=== PATIENT | female | born 1960 | race Caucasian/White ===

== ENCOUNTER 2018-09-20 10:28 | Emergency (ER) | payer OTHER ==
[2018-09-20] MEDS ORDERED: ONDANSETRON 4 MG/2 ML VIAL ONE (10:54)
[2018-09-20] MEDS ORDERED: NS 1,000 ML IV ONE (10:57)
[2018-09-20] MEDS ORDERED: ONDANSETRON 4 MG/2 ML VIAL IVP ONE ×2 (10:57→14:04)
[2018-09-20 11:01] LABS: PLATELET COUNT 347 10^3/uL (150-400)
[2018-09-20] MEDS ORDERED: LORazepam 2 MG/ML INJ IVP ONE (11:03)
[2018-09-20] MEDS ORDERED: KETOROLAC 30 MG/1 ML SDV IVP ONE (11:04)
--- NOTE | 2018-09-20 11:07 | EDPHY ---
H & P Time Seen by Provider: 09/20/18 10:57 HPI/ROS: CHIEF COMPLAINT: Chest pain HISTORY OF PRESENT ILLNESS: Patient is a 50-year-old female presents emergency department with right-sided chest pain. Patient is visiting from [facility] for the [employer]. Patient states she woke this morning was feeling okay. When she went front of the hotel at approximately 7:30 a.m. She developed right-sided chest pain. It was pleuritic in nature. She describes a sharp pain when she takes a deep breath. She thought it was just a "stitch." She started to run the [employer] thinking that she would be able to run through it. Her pain worsened. She ran less than 1 km and had a walk. By km 3 she stopped at the aid station for worsening pain. She was treated with aspirin orally. EMS was notified and she was transferred to the emergency department. Her pain continues to worsen. She had 2 episodes of emesis while here. She denies any leg pain or swelling. She does take hormone replacement therapy. REVIEW OF SYSTEMS: 10 systems were reveiwed and are negative with the exception of the elements mentioned in the history of present illness. Past Medical/Surgical History: Includes thyroid disease Social history: Patient is from [place]. She does not smoke. Smoking Status: Current some day smoker Physical Exam: Vitals noted GENERAL: Anxious appearing, in moderate acute distress, alert. HEENT: Eyes normal to inspection, normal pharynx, no signs of dehydration. NECK: Normal, supple. RESPIRATORY: Clear to auscultation bilaterally, no rales, rhonchi or wheezing. CVS: Regular rate and rhythm, no rubs, murmurs, or gallops. No chest wall tenderness palpation. ABDOMEN: Soft, nontender, nondistended, no organomegaly. BACK: Normal to inspection, no CVA tenderness. SKIN: Normal color, no rash, warm, dry. No pallor. EXTREMITIES: No pedal edema, no calf tenderness, no Homans sign or cords, no joint swelling. NEURO/PSYCH: Alert and oriented, anxious appearing, normal motor sensory exam. No obvious cranial nerve deficit. Constitutional: Initial Vital Signs Temperature (C) 36 C 09/20/18 10:32 Heart Rate 59 L 09/20/18 10:32 Respiratory Rate 18 09/20/18 10:32 Blood Pressure 145/70 H 09/20/18 10:32 O2 Sat (%) 97 09/20/18 10:32 O2 Delivery Mode Room Air Allergies/Adverse Reactions: Tetracyclines Allergy (Verified 09/20/18 10:31) Home Medications: Medication Instructions Recorded oxyCODONE/APAP 5/325 [Percocet 1 - 2 tab PO Q4PRN PRN #11 tab 09/20/18 5/325 (*)] Medical Decision Making - Diagnostics Imaging Results: Imaging Impressions Chest X-Ray 09/20/18 10:55 Impression: Mild bronchitis. No other findings for acute cardiopulmonary abnormality. ED Course/Re-evaluation: In the emergency department I discussed possible etiologies with the patient. I answered all her questions. Her initial EKG was unremarkable. See below. However, the patient had worsening pain while here in a repeat EKG was ordered. Patient received aspirin at the aid station. She was given Toradol 30 mg IV and Ativan 0.5 mg IV for her symptoms. Laboratory studies and chest x-ray are pending. #1 EKG shows normal sinus rhythm, normal rate, normal axis, normal intervals. There are no ST or T-wave abnormalities. EKG is normal as interpreted by me. #2 EKG shows normal sinus rhythm, normal rate, normal axis, normal intervals. There are no ST or T-wave abnormalities. EKG is normal as interpreted by me. Repeat EKG unchanged. CBC and chemistry unremarkable. Troponin was negative. D-dimer was 0.27. Chest x-ray: Mild bronchitis. No infiltrate. No pneumothorax. I discussed the results with the patient. I answered all her questions. I recommend the patient have a repeat troponin and EKG at 3:00 a.m.. The patient was given Percocet 2 tablets orally for her ongoing pain. EKG shows normal sinus rhythm, normal rate, normal axis, normal intervals. There are no ST or T-wave abnormalities. EKG is normal as interpreted by me. Repeat troponin 0. 1424: I rechecked the patient. She was feeling better. She had clear breath sounds bilaterally. No signs of distress. I discussed disposition options. Patient would prefer discharge. She was given warnings prior to leaving. She will return with worsening symptoms. Differential Diagnosis: My differential includes but is not limited to ACS, acute [place], dissection, aneurysm, pulmonary embolus, pneumothorax, pleurisy - Data Points Laboratory Results: Laboratory Results 09/20/18 10:45 09/20/18 10:45 09/20/18 09/20/18 09/20/18 13:42 10:45 10:45 WBC RBC Hgb Hct MCV MCH MCHC RDW Plt Count MPV Neut % (Auto) Lymph % (Auto) Emmet % (Auto) Eos % (Auto) Baso % (Auto) Nucleat RBC Rel Count Absolute Neuts (auto) Absolute Lymphs (auto) Absolute Monos (auto) Absolute Eos (auto) Absolute Basos (auto) Absolute Nucleated RBC Immature Gran % Immature Gran # D-Dimer 0.27 ug/mLFEU ug/mLFEU (0.00-0.50) Sodium Potassium Chloride Carbon Dioxide Anion Gap BUN Creatinine Estimated GFR Glucose Calcium Total Bilirubin 0.8 mg/dL mg/dL (0.1-1.4) Conjugated Bilirubin 0.1 mg/dL mg/dL (0.0-0.5) Unconjugated Bilirubin 0.7 mg/dL mg/dL (0.0-1.1) AST 29 IU/L IU/L (14-46) ALT 25 IU/L IU/L (9-52) Alkaline Phosphatase 51 IU/L IU/L (38-126) POC Troponin I 0.00 ng/mL ng/mL (0.00-0.08) Total Protein 8.1 g/dL g/dL (6.3-8.2) Albumin 4.7 g/dL g/dL (3.5-5.0) Lipase 129 IU/L IU/L (23-300) 09/20/18 09/20/18 09/20/18 10:45 10:45 10:42 WBC 5.29 10^3/uL 10^3/uL (3.80-9.50) RBC 4.82 10^6/uL 10^6/uL (4.18-5.33) Hgb 14.4 g/dL g/dL (12.6-16.3) Hct 43.3 % % (38.0-47.0) MCV 89.8 fL fL (81.5-99.8) MCH 29.9 pg pg (27.9-34.1) MCHC 33.3 g/dL g/dL (32.4-36.7) RDW 12.3 % % (11.5-15.2) Plt Count 347 10^3/uL 10^3/uL (150-400) MPV 8.9 fL fL (8.7-11.7) Neut % (Auto) 53.6 % % (39.3-74.2) Lymph % (Auto) 33.8 % % (15.0-45.0) Emmet % (Auto) 8.7 % % (4.5-13.0) Eos % (Auto) 2.6 % % (0.6-7.6) Baso % (Auto) 1.1 % % (0.3-1.7) Nucleat RBC Rel Count 0.0 % % (0.0-0.2) Absolute Neuts (auto) 2.83 10^3/uL 10^3/uL (1.70-6.50) Absolute Lymphs (auto) 1.79 10^3/uL 10^3/uL (1.00-3.00) Absolute Monos (auto) 0.46 10^3/uL 10^3/uL (0.30-0.80) Absolute Eos (auto) 0.14 10^3/uL 10^3/uL (0.03-0.40) Absolute Basos (auto) 0.06 10^3/uL 10^3/uL (0.02-0.10) Absolute Nucleated RBC 0.00 10^3/uL 10^3/uL (0-0.01) Immature Gran % 0.2 % % (0.0-1.1) Immature Gran # 0.01 10^3/uL 10^3/uL (0.00-0.10) D-Dimer Sodium 140 mEq/L mEq/L (135-145) Potassium 4.2 mEq/L mEq/L (3.5-5.2) Chloride 101 mEq/L mEq/L (97-110) Carbon Dioxide 25 mEq/l mEq/l (22-31) Anion Gap 14 mEq/L mEq/L (6-14) BUN 17 mg/dL mg/dL (7-23) Creatinine 0.7 mg/dL mg/dL (0.6-1.0) Estimated GFR > 60 Glucose 97 mg/dL mg/dL (70-100) Calcium 9.6 mg/dL mg/dL (8.5-10.4) Total Bilirubin Conjugated Bilirubin Unconjugated Bilirubin AST ALT Alkaline Phosphatase POC Troponin I 0.01 ng/mL ng/mL (0.00-0.08) Total Protein Albumin Lipase Medications Given: Discontinued Medications Sodium Chloride (Ns) 1,000 mls @ 0 mls/hr IV ONCE ONE PRN Reason: Wide Open Stop: 09/20/18 10:58 Last Admin: 09/20/18 10:58 Dose: 1,000 mls Ketorolac Tromethamine (Toradol) 30 mg IVP EDNOW ONE Stop: 09/20/18 11:05 Last Admin: 09/20/18 11:07 Dose: 30 mg Lorazepam (Ativan Injection) 0.5 mg IVP EDNOW ONE Stop: 09/20/18 11:04 Last Admin: 09/20/18 11:08 Dose: 0.5 mg Ondansetron HCl (Zofran) 4 mg IVP EDNOW ONE Stop: 09/20/18 10:58 Last Admin: 09/20/18 10:58 Dose: 4 mg Ondansetron HCl (Zofran) 4 mg IVP EDNOW ONE Stop: 09/20/18 14:05 Last Admin: 09/20/18 14:07 Dose: 4 mg Oxycodone/Acetaminophen (Percocet 5/325) 2 tab PO EDNOW ONE Stop: 09/20/18 13:42 Last Admin: 09/20/18 14:08 Dose: 2 tab Point of Care Test Results: Chemistry 09/20/18 09/20/18 13:42 10:42 POC Troponin I 0.00 ng/mL ng/mL 0.01 ng/mL ng/mL (0.00-0.08) (0.00-0.08) Departure - Departure Disposition: Home, Routine, Self-Care Clinical Impression: Chest pain Qualifiers: Chest pain type: unspecified Qualified Code(s): R07.9 - Chest pain, unspecified Condition: Fair Instructions: Chest Pain (ED), Pleurisy (ED) Additional Instructions: Return with increasing chest pain, fever, shortness of breath, or any other concerns. Referrals: Daphne Resendez MD [Medical Doctor] - 1-2 days without fail Stand Alone Forms: Airline Excuse Prescriptions: oxyCODONE/APAP 5/325 [Percocet 5/325 (*)] 1 - 2 tab PO Q4PRN PRN #11 tab PRN Reason: For Moderate To Severe Pain
[2018-09-20] MEDS ORDERED: OXYCODONE/APAP 5/325 TAB PO ONE (13:41)
[2018-09-20 14:10] VITALS: BP 138/73
[2018-09-20] MEDS ORDERED: OXYCODONE/APAP 5/325MG PREPACK#4 BTL TAKEHOME ONE (15:02)
--- NOTE | 2018-09-20 15:02 | CPEKG ---
Test Reason : OPEN Blood Pressure : / mmHG Vent. Rate : 057 BPM Atrial Rate : 056 BPM P-R Int : 176 ms QRS Dur : 087 ms QT Int : 442 ms P-R-T Axes : 046 022 032 degrees QTc Int : 431 ms Sinus rhythm Borderline T abnormalities, anterior leads Confirmed by Jennifer Aponte ([id number]) on 09/20/2018 3:02:02 PM Referred By: PHYSICIAN ED Confirmed By:Jennifer Aponte
--- NOTE | 2018-09-20 15:02 | CPEKG ---
Test Reason : OPEN Blood Pressure : / mmHG Vent. Rate : 056 BPM Atrial Rate : 056 BPM P-R Int : 167 ms QRS Dur : 087 ms QT Int : 462 ms P-R-T Axes : 052 055 040 degrees QTc Int : 446 ms Sinus rhythm Confirmed by Jennifer Aponte ([id number]) on 09/20/2018 3:02:02 PM Referred By: Jennifer Aponte Confirmed By:Jennifer Aponte
--- NOTE | 2018-09-20 15:02 | CPEKG ---
Test Reason : OPEN Blood Pressure : / mmHG Vent. Rate : 063 BPM Atrial Rate : 063 BPM P-R Int : 169 ms QRS Dur : 085 ms QT Int : 437 ms P-R-T Axes : 052 047 050 degrees QTc Int : 448 ms Sinus rhythm Borderline T wave abnormalities Confirmed by Sonja Aponte ([id number]) on 09/20/2018 3:02:03 PM Referred By: SONJA APONTE Confirmed By:Sonja Aponte
== END 2018-09-20 14:45 | disposition home or self-care (01) ==
DX: R07.89 Other chest pain (principal); R11.10 Vomiting, unspecified; Z79.890 Hormone replacement therapy; J40 Bronchitis, not specified as acute or chronic; F17.200 Nicotine dependence, unspecified, uncomplicated
CPT/HCPCS: 84484-ER; 96374; J1885; J2060; J2405